=== PATIENT | male | born 1960 | race American Indian/Alaskan Native ===

== ENCOUNTER 2017-08-03 00:54 | Emergency (ER) | payer BC, MEDICAID, OTHER ==
[2017-08-03] MEDS: GI Cocktail Oral Solution 30 ML PO ONE (01:06)
[2017-08-03] MEDS: Ondansetron 4 MG/2 ML SDV IV ONE (01:06)
[2017-08-03] MEDS: HYDROmorphone 1 MG/ML Syringe IVPUSH ONE (01:23)
[2017-08-03] MEDS: Famotidine 20 MG/2 ML SDV IVPUSH ONE (01:23)
[2017-08-03 01:42] LABS: CHLORIDE,CL 101 mmol/L (101-111); SODIUM,NA 138 mmol/L (135-145)
--- NOTE | 2017-08-03 02:04 | EDM.PDOC ---
ED HPI GENERAL MEDICAL PROBLEM - General Chief Complaint: Abdominal Pain Stated Complaint: STOMACH [id number] Time Seen by Provider: 08/03/17 01:05 Source of Information: Reports: Patient History Limitations: Reports: No Limitations - History of Present Illness INITIAL COMMENTS - FREE TEXT/NARRATIVE: ED with c/o severe epigastric pain, cramping since 8pm, last meal breakfast of fried egg sandwich. Nausea no vomiting, no fever or chills. Last BM "normal" at 6pm. Notes hx of similar episodes but not as severe and went away by without treatment. No ETOH for 12 years, Denies drug use, non smoker. Epigastric Pain Score (Numeric/FACES): 10 - Related Data Allergies Allergy/AdvReac Type Severity Reaction Status Date / Time No Known Allergies Allergy Verified 08/03/17 01:02 Home Meds: Home Meds Aspirin [Low Dose Aspirin EC] 1 tab PO DAILY 08/03/17 [History] Gabapentin [Neurontin] 600 mg PO TID 08/03/17 [History] Glimepiride [Amaryl] 08/03/17 [History] Lisinopril [Lisinopril] 1 tab PO DAILY 08/03/17 [History] Simvastatin [Zocor] 20 mg PO BEDTIME 08/03/17 [History] metFORMIN HCl [Metformin HCl] 1 tab PO BID 08/03/17 [History] Past Medical History Cardiovascular History: Reports: High Cholesterol, Hypertension Gastrointestinal History: Reports: GERD Neurological History: Reports: Neuropathy, Diabetic Endocrine/Metabolic History: Reports: Diabetes, Type II Social & Family History - Family History Family Medical History: Noncontributory - Tobacco Use Smoking Status *Q: Unknown Ever Smoked - Caffeine Use Caffeine Use: Reports: Coffee - Recreational Drug Use Recreational Drug Use: No ED ROS GENERAL - Review of Systems Review Of Systems: ROS reveals no pertinent complaints other than HPI. ED EXAM, GI/ABD - Physical Exam Exam: See Below Exam Limited By: No Limitations General Appearance: Alert, Moderate Distress Eyes: Bilateral: EOMI Ears: Normal External Exam Nose: Normal Inspection Throat/Mouth: No: Normal Teeth (poor dentation) Head: Atraumatic, Normocephalic Neck: Normal Inspection, Full Range of Motion Respiratory/Chest: No Respiratory Distress, Lungs Clear, Normal Breath Sounds Cardiovascular: Normal Peripheral Pulses, Regular Rate, Rhythm GI/Abdominal Exam: Tender (epigastric RUQ), Abnormal Bowel Sounds (hypoactive) Back Exam: Normal Inspection Extremities: Normal Inspection Neurological: Alert, Oriented, Normal Cognition Psychiatric: Normal Affect Skin Exam: Warm, Dry, Intact, Normal Color Course - Vital Signs Last Recorded V/S: Last Vital Signs Temp 99.5 F 08/03/17 03:32 Pulse 85 08/03/17 03:32 Resp 16 08/03/17 03:32 BP 145/75 H 08/03/17 03:32 Pulse Ox 97 08/03/17 03:32 - Orders/Labs/Meds Orders: Active Orders 24 hr Category Date Time Status EKG 12 Lead [EKG Documentation Completion] [RC] URGENT Care 08/03/17 01:02 Active DRUG SCREEN, URINE [URCHEM] Stat Lab 08/03/17 03:25 Ordered UA W/MICROSCOPIC [URIN] Stat Lab 08/03/17 03:25 Ordered Labs: Laboratory Tests 08/03/17 08/03/17 Range/Units 01:00 01:00 WBC 21.4 H (5.0-10.0) 10^3/uL RBC 5.04 (4.6-6.2) 10^6/uL Hgb 14.9 (14.0-18.0) g/dL Hct 44.5 (40.0-54.0) % MCV 88.3 (80-100) fL MCH 29.6 (27.0-34.0) pg MCHC 33.5 (33.0-35.0) g/dL Plt Count 284 (150-450) 10^3/uL Neut % (Auto) 86.2 H (42.2-75.2) % Lymph % (Auto) 6.9 L (20.5-50.1) % [place] % (Auto) 6.8 (2-8) % Eos % (Auto) 0.0 L (1.0-3.0) % Baso % (Auto) 0.1 (0.0-1.0) % Add Manual Diff Yes Neutrophils % (Manual) 77 H (42-75) % Band Neutrophils % 11 % Lymphocytes % (Manual) 6 L (20-50) % Monocytes % (Manual) 4 (2-8) % Basophils % (Manual) 1 Metamyelocytes % 1 Toxic Granulation 1+ slight Platelet Estimate Adequate Target Cells 1+ slight Tear Drop Cells 1+ slight Sodium 138 (135-145) mmol/L Potassium 3.6 (3.6-5.0) mmol/L Chloride 101 (101-111) mmol/L Carbon Dioxide 24.0 (21.0-31.0) mmol/L Anion Gap 16.6 BUN 24 H (7-18) mg/dL Creatinine 1.1 (0.6-1.3) mg/dL Est Cr Clr Drug Dosing 83.28 mL/min Estimated GFR (MDRD) > 60 BUN/Creatinine Ratio 21.81 Glucose 226 H (74-105) mg/dL Calcium 9.4 (8.4-10.2) mg/dl Total Bilirubin 1.7 H (0.2-1.0) mg/dL AST 161 H (10-42) IU/L ALT 161 H (10-60) IU/L Alkaline Phosphatase 186 H (42-121) IU/L Troponin I < 0.02 (0.00-0.02) ng/ml Total Protein 8.4 H (6.7-8.2) g/dl Albumin 4.2 (3.2-5.5) g/dl Globulin 4.2 Albumin/Globulin Ratio 1.00 Amylase 1647 H (28-100) U/L Lipase > 400 H (22-51) U/L Ethyl Alcohol < 5 mg/dL Meds: Medications Discontinued Medications Generic Name Dose Route Start Last Admin Trade Name Freq PRN Reason Stop Dose Admin Al Hydroxide/Mg Hydroxide 30 ml 08/03/17 01:03 08/03/17 01:06 Gi Cocktail PO 08/03/17 01:04 30 ml ONETIME ONE Administration Famotidine 20 mg 08/03/17 01:20 08/03/17 01:23 Pepcid IVPUSH 08/03/17 01:21 20 mg ONETIME ONE Administration Hydromorphone HCl 1 mg 08/03/17 01:19 08/03/17 01:23 Dilaudid IVPUSH 08/03/17 01:20 1 mg ONETIME ONE Administration Sodium Chloride 1,000 mls @ 999 mls/hr 08/03/17 02:17 08/03/17 02:22 Normal Saline IV 08/03/17 03:17 999 mls/hr .BOLUS ONE Administration Iopamidol 100 ml 08/03/17 01:42 08/03/17 02:05 Isovue-300 (61%) IVPUSH 08/03/17 01:43 100 ml ONETIME ONE Administration Ondansetron HCl 4 mg 08/03/17 01:03 08/03/17 01:06 Zofran IV 08/03/17 01:04 4 mg ONETIME ONE Administration - Radiology Interpretation Free Text/Narrative:: cholelitiasis without ductal dilation questionalble mild pancreatic edema - Re-Assessments/Exams Free Text/Narrative Re-Assessment/Exam: 08/03/17 03:33 Pain improved with Dilaudid, resting. Ct6 Abdomen, cholelithiasis, . TC consult Wellington Allred, accepting of patient for further evaluation and management of cholelithiasis with elevated LFT's, koki lase and lipase. Patient remains NPO since 10pm. Last solid intake yesterday am. Tx via LRAS in stable condition. Departure - Departure Time of Disposition: 03:37 Disposition: DC/Tfer to Acute Hospital 02 Condition: Good Clinical Impression: Cholelithiasis and acute cholecystitis without obstruction Pancreatitis Qualifiers: Chronicity: acute Pancreatitis type: unspecified pancreatitis type Acute pancreatitis complication: unspecified Qualified Code(s): K85.90 - Acute pancreatitis without necrosis or infection, unspecified - Discharge Information Forms: ED Department Discharge - My Orders Last 24 Hours: My Active Orders 08/03/17 01:02 EKG 12 Lead [EKG Documentation Completion] [RC] URGENT 08/03/17 03:25 DRUG SCREEN, URINE [URCHEM] Stat UA W/MICROSCOPIC [URIN] Stat - Assessment/Plan Last 24 Hours: My Active Orders 08/03/17 01:02 EKG 12 Lead [EKG Documentation Completion] [RC] URGENT 08/03/17 03:25 DRUG SCREEN, URINE [URCHEM] Stat UA W/MICROSCOPIC [URIN] Stat
[2017-08-03] MEDS: Iopamidol 612 MG/ML 100 ML Bottle IVPUSH ONE (02:05)
[2017-08-03] MEDS: Sodium Chloride 0.9% 1,000 ML IV ONE (02:22)
== END 2017-08-03 04:02 ==
LOC: DL.ED 00:54
DX: K80.00 Calculus of gallbladder with acute cholecystitis without obstruction (principal); K85.90 Acute pancreatitis without necrosis or infection, unspecified; E78.00 Pure hypercholesterolemia, unspecified; I10 Essential (primary) hypertension; E11.40 Type 2 diabetes mellitus with diabetic neuropathy, unspecified; Z79.82 Long term (current) use of aspirin; Z79.84 Long term (current) use of oral hypoglycemic drugs; Z79.899 Other long term (current) drug therapy
CPT/HCPCS: 36415; 74177; 80053; 80305; 81001; 82150; 83690; 84484; 85025; 93005; 96361; 96374; 96375; 99285; A9270; G0480; J1170; J2405; J7030; Q9967; S0028

== ENCOUNTER 2021-06-22 07:24 | Day surgery (SDC) | payer MEDICARE, MEDICAID ==
[2021-06-22] MEDS ORDERED: Midazolam 1 MG/ML 2 ML SDV IV ONE (07:25)
[2021-06-22] MEDS ORDERED: Dexamethasone 4 MG/ML SDV IV ONE (07:25)
[2021-06-22] MEDS ORDERED: Sodium Chloride 0.9% 10 ML Syringe IV ONE (07:25)
[2021-06-22] MEDS ORDERED: Ondansetron 4 MG/2 ML SDV IVPUSH PRN (08:00)
[2021-06-22] MEDS ORDERED: Acetaminophen 325 MG Tab PO PRN (08:00)
[2021-06-22] MEDS ORDERED: Acetaminophen/Codeine 300-30 MG Tab PO PRN (08:00)
[2021-06-22] MEDS ORDERED: Povidone-Iodine 5% Sterile Ophth Soln 30 ML Bottle EYELF ONE ×2 (08:00→09:16)
[2021-06-22] MEDS ORDERED: Timolol Maleate 0.5% Ophth Soln 5 ML Bottle EYELF ONE (08:00)
[2021-06-22] MEDS ORDERED: Proparacaine 0.5% Ophth Soln 15 ML Bottle EYELF ONE (08:00)
[2021-06-22] MEDS ORDERED: Phenylephrine 10% Ophth Soln 5 ML Bot EYELF ONE (08:00)
[2021-06-22] MEDS ORDERED: Moxifloxacin 0.5% Ophth Soln 3 ML Bottle EYELF ONE (08:00)
[2021-06-22] MEDS ORDERED: Tropicamide 1% Ophth Soln 15 ML Bottle EYELF ONE (08:00)
[2021-06-22] MEDS ORDERED: Tobramycin 0.3% Ophth Drops 5 ML Bottle EYELF SCH (08:00)
[2021-06-22] MEDS ORDERED: Cataract Ophth Solution EYELF ONE (08:00)
[2021-06-22] MEDS ORDERED: Tetracaine HCl/PF 0.5% 4 ML Bottle EYELF ONE (09:15)
[2021-06-22] MEDS ORDERED: Lidocaine 1% 30 ML SDV ONE (09:16)
[2021-06-22] MEDS ORDERED: Apraclonidine 0.5% Ophth Soln 5 ML Bot EYELF ONE (09:17)
[2021-06-22] MEDS ORDERED: Diclofenac Sodium 0.1% Ophth Soln 5 ML Bottle EYELF ONE (09:17)
[2021-06-22] MEDS ORDERED: Dexamethasone/Neomycin/Polymyxin B Ophth Oint 3.5 GM Tube EYELF ONE (09:17)
[2021-06-22] MEDS ORDERED: Chondroitin Sulfate/Hyaluronate Sodium Ophth Inj 0.75 ML Syringe EYELF ONE (09:18)
[2021-06-22] MEDS ORDERED: Vancomycin 500 MG SDV EYELF ONE (09:18)
[2021-06-22] MEDS ORDERED: Balanced Salt Solution Ophth Irrig 500 ML Bottle IOCULAR ONE (09:18)
== END 2021-06-22 10:32 | disposition home or self-care (01) ==
LOC: DL.SDS 07:24
PROVIDERS: ATTEND Ophthalmology
DX: E11.36 Type 2 diabetes mellitus with diabetic cataract (principal); E11.22 Type 2 diabetes mellitus with diabetic chronic kidney disease; H25.812 Combined forms of age-related cataract, left eye; I12.9 Hypertensive chronic kidney disease with stage 1 through stage 4 chronic kidney disease, or unspecified chronic kidney disease; N18.9 Chronic kidney disease, unspecified; Z88.5 Allergy status to narcotic agent; Z79.899 Other long term (current) drug therapy; Z79.84 Long term (current) use of oral hypoglycemic drugs
CPT/HCPCS: 00142; 66984; A9270; J1100; J2250; J3370; V2632

== ENCOUNTER 2021-06-29 06:46 | Day surgery (SDC) | payer MEDICARE, MEDICAID ==
[2021-06-29] MEDS ORDERED: Dexamethasone 4 MG/ML SDV IV ONE (06:47)
[2021-06-29] MEDS ORDERED: Sodium Chloride 0.9% 10 ML Syringe IV ONE (06:47)
[2021-06-29] MEDS ORDERED: Midazolam 1 MG/ML 2 ML SDV IV ONE (06:47)
[2021-06-29] MEDS ORDERED: Moxifloxacin 0.5% Ophth Soln 3 ML Bottle EYERT ONE (07:30)
[2021-06-29] MEDS ORDERED: Acetaminophen 325 MG Tab PO PRN (07:30)
[2021-06-29] MEDS ORDERED: Timolol Maleate 0.5% Ophth Soln 5 ML Bottle EYERT ONE (07:30)
[2021-06-29] MEDS ORDERED: Phenylephrine 10% Ophth Soln 5 ML Bot EYERT ONE (07:30)
[2021-06-29] MEDS ORDERED: Povidone-Iodine 5% Sterile Ophth Soln 30 ML Bottle EYERT ONE ×2 (07:30→08:45)
[2021-06-29] MEDS ORDERED: Proparacaine 0.5% Ophth Soln 15 ML Bottle EYERT ONE (07:30)
[2021-06-29] MEDS ORDERED: Tropicamide 1% Ophth Soln 15 ML Bottle EYERT ONE (07:30)
[2021-06-29] MEDS ORDERED: Ondansetron 4 MG/2 ML SDV IVPUSH PRN (07:30)
[2021-06-29] MEDS ORDERED: Cataract Ophth Solution EYERT ONE (07:30)
[2021-06-29] MEDS ORDERED: Acetaminophen/Codeine 300-30 MG Tab PO PRN (07:30)
[2021-06-29] MEDS ORDERED: Tetracaine HCl/PF 0.5% 4 ML Bottle EYERT ONE (08:45)
[2021-06-29] MEDS ORDERED: Apraclonidine 0.5% Ophth Soln 5 ML Bot EYERT ONE (08:46)
[2021-06-29] MEDS ORDERED: Balanced Salt Solution Ophth Irrig 500 ML Bottle IOCULAR ONE (08:46)
[2021-06-29] MEDS ORDERED: Chondroitin Sulfate/Hyaluronate Sodium Ophth Inj 0.75 ML Syringe EYERT ONE (08:46)
[2021-06-29] MEDS ORDERED: Diclofenac Sodium 0.1% Ophth Soln 5 ML Bottle EYERT ONE (08:46)
[2021-06-29] MEDS ORDERED: Dexamethasone/Neomycin/Polymyxin B Ophth Oint 3.5 GM Tube EYERT ONE (08:46)
[2021-06-29] MEDS ORDERED: Lidocaine 1% 30 ML SDV ONE (08:47)
[2021-06-29] MEDS ORDERED: Vancomycin 500 MG SDV EYERT ONE (08:47)
== END 2021-06-29 09:58 | disposition home or self-care (01) ==
LOC: DL.SDS 06:46
PROVIDERS: ATTEND Ophthalmology
DX: E11.36 Type 2 diabetes mellitus with diabetic cataract (principal); H25.811 Combined forms of age-related cataract, right eye; I12.9 Hypertensive chronic kidney disease with stage 1 through stage 4 chronic kidney disease, or unspecified chronic kidney disease; E78.5 Hyperlipidemia, unspecified; E11.22 Type 2 diabetes mellitus with diabetic chronic kidney disease; E66.9 Obesity, unspecified; N18.1 Chronic kidney disease, stage 1; Z79.899 Other long term (current) drug therapy; Z88.8 Allergy status to other drugs, medicaments and biological substances; Z79.84 Long term (current) use of oral hypoglycemic drugs; Z68.25 Body mass index [BMI] 25.0-25.9, adult
CPT/HCPCS: 00142; A9270-GY; J1100; J2250; J3370; V2632